=== PATIENT | female | born 1950 | race Caucasian/White ===

== ENCOUNTER 2017-09-15 19:34 | Emergency (ER) | payer MEDICARE, OTHER ==
[2017-09-15 19:57] VITALS: BP 165/75
--- NOTE | 2017-09-15 21:17 | XRAY Report ---
EXAM: RIGHT WRIST RADIOGRAPHY EXAM DATE: 09/15/2017 08:40 PM. CLINICAL HISTORY: Fall, visible swelling and pain right wrist. COMPARISON: None. TECHNIQUE: 3 views. FINDINGS: Bones: Normal. No fractures or bone lesions. Joints: Normal. No subluxations. Soft Tissues: Moderate soft tissue swelling over the radial-full or distal right forearm consistent w ith contusion and hematoma. IMPRESSION: No fracture or malalignment. [facility] Referring Provider Line: [phone] SITE ID: [id number]
--- NOTE | 2017-09-15 21:17 | XRAY Preliminary Report ---
Exam: XR WRIST 3 VIEW RT IMPRESSION: No fracture or malalignment. [facility] SITE ID: [id number]
--- NOTE | 2017-09-15 22:23 | ED Physician Documentation ---
PD HPI UPPER EXT INJURY - Stated complaint Stated Complaint: R WRIST INJURY - Chief complaint Chief Complaint: Ext Problem - History obtained from History obtained from: Patient - History of Present Illness Location: Right, Forearm Type of injury: Fall Where injury occurred: Home Timing - onset: Today Timing - details: Abrupt onset Worsened by: Moving, Palpating Associated symptoms: Swelling, Discolored Contributing factors: No: Anticoagulated, Prior ortho surgery Similar symptoms before: Has not had sx before Recently seen: Not recently seen - Additonal information Additional information: patient is a 67 year old female who is presenting to the emergency department for left sided arm pain. Patient states that she was walking down the steps when she slipped and hit her arm causing significant swelling and bruising. patient denies any LOC or other significant injury. Review of Systems Constitutional: reports: Reviewed and negative Eyes: reports: Reviewed and negative Ears: reports: Reviewed and negative Nose: reports: Reviewed and negative Throat: denies: Dental pain / toothache Cardiac: reports: Reviewed and negative Respiratory: reports: Reviewed and negative GI: denies: Nausea, Vomiting : reports: Reviewed and negative Skin: reports: Lesions, Abrasion (s). denies: Laceration (s) Musculoskeletal: reports: Extremity pain, Extremity swelling Neurologic: denies: Focal weakness, Numbness, Headache, Head injury, LOC Immunocompromised: denies: Immunocompromised PD PAST MEDICAL HISTORY - Past Medical History Cardiovascular: High cholesterol - Past Surgical History Past Surgical History: Yes HEENT: Tonsil/Adenoidectomy - Present Medications Home Medications: Ambulatory Orders Medication Instructions Recorded Confirmed Aspirin 81 mg 04/22/16 Levothyroxine [Synthroid] 125 mcg 04/22/16 Liothyronine [Cytomel] 5 mcg 04/22/16 Simvastatin [Zocor] 20 mg 04/22/16 - Allergies Allergies/Adverse Reactions: Allergies Allergy/AdvReac Type Severity Reaction Status Date / Time No Known Drug Allergies Allergy Verified 09/15/17 19:44 - Social History Does the pt smoke?: No Smoking Status: Never smoker Does the pt drink ETOH?: Yes Does the pt have substance abuse?: No - Immunizations Immunizations are current?: Yes PD ED PE NORMAL - Vitals Vital signs reviewed: Yes - General General: Alert and oriented X 3, No acute distress - HEENT HEENT: Atraumatic, PERRL - Neck Neck: No bony TTP - Cardiac Cardiac: RRR - Respiratory Respiratory: No respiratory distress - Neuro Neuro: Alert and oriented X 3, No motor deficit, Normal speech Eye Opening: Spontaneous Motor: Obeys Commands Verbal: Oriented GCS Score: 15 - Psych Psych: Normal mood PD ED PE EXPANDED - Extremities Extremities: Right forearm (tenderness and swelling to medial component of right forearm) Results - Vitals Vitals: Vital Signs - 24 hr 09/15/17 19:40 Temperature 36.6 C Heart Rate 99 Respiratory 76 H Rate Blood Pressure 165/75 H O2 Saturation 99 Oxygen O2 Source Room air - Rads (name of study) forearm x-ray Radiology: Final report received (no acute fracture or dislocation) PD MEDICAL DECISION MAKING - ED course Complexity details: reviewed old records, reviewed results, re-evaluated patient , considered differential, d/w patient, d/w family ED course: Patient was seen and examined at beside. Patient had already had imaging performed and it was reviewed and negative. patient stated that the swelling was improving with the ice. Patient denied any other injuries and stated she could take medication at home. Patient required no further work up and was stable for discharge with outpatient follow up. Departure - Departure Disposition: 01 Home, Self Care Clinical Impression: Contusion of wrist, right Condition: Good Instructions: ED Contusion Upper Ext Follow-Up: Provider,Other [Primary Care Provider] - Comments: Your diagnostics today were within normal limits. ther is no acute fracture or dislocation. You should continue to ice the arm. You can take the motrin or tylenol as needed for pain. You should follow up with your doctor if your symptoms persist. you may return to the emergency department at any time for new, worsening or uncontrollable symptoms. Discharge Date/Time: 09/15/17 22:30
== END 2017-09-15 22:30 | disposition home or self-care (01) ==
LOC: ED 19:34
DX: S60.211A Contusion of right wrist, initial encounter (principal); W10.9XXA Fall (on) (from) unspecified stairs and steps, initial encounter; E78.00 Pure hypercholesterolemia, unspecified; Z79.82 Long term (current) use of aspirin
CPT/HCPCS: 99281; 99282

== ENCOUNTER 2020-10-19 15:39 | Outpatient (CLI) | payer MEDICARE, OTHER | END 2020-10-19 15:40 | disposition home or self-care (01) | LOC: RT 15:39 | PROVIDERS: ATTEND Physician Assistant | DX: I10 Essential (primary) hypertension (principal); Z92.21 Personal history of antineoplastic chemotherapy | CPT/HCPCS: 93005 ==

== ENCOUNTER 2020-11-01 09:02 | Outpatient (CLI) | payer MEDICARE, OTHER | END 2020-11-01 09:03 | disposition home or self-care (01) | LOC: RT 09:02 | PROVIDERS: ATTEND Physician Assistant | DX: I10 Essential (primary) hypertension (principal); Z92.21 Personal history of antineoplastic chemotherapy | CPT/HCPCS: 93005 ==

== ENCOUNTER 2020-11-17 | Outpatient (CLI) | payer MEDICARE, OTHER | END 2020-11-17 08:10 | disposition home or self-care (01) | CPT/HCPCS: 93005 ==